=== PATIENT | female | born 1960 | race Caucasian/White ===

== ENCOUNTER 2020-04-03 09:15 | Day surgery (SDC) | payer OTHER ==
[~2020-04-03] VITALS: Ht 165.1 cm; Wt 83.6 kg
[~2020-04-03 09:15] MED LIST: SERTRALINE HCL25 MG PO; TRAMADOL-ACETA1 EACH PO
--- NOTE | 2020-04-03 10:18 | NUR ---
MINNA WITH NUCLEAR MED IN TO TAKE PT TO IMAGING.
--- NOTE | 2020-04-03 16:28 | NUR ---
04/03/20 1628 Rios,Laureen 1604 PT ARRIVED TO PACU WITH ORAL AIRWAY IN PLACE, RESP EVEN AND UNLABORED. PT NONAROUSBALE. VSS. 1619 PT WOKE TO TACTILE STIMULI AND ORAL AIRWAY REMOVED. PT REORIENTED TO PACU. PT RACHING FOR FACE AND ITCHING NOSE. PT REPORT SMALL AMOUNT OF PAIN AND NO NAUSEA. 1625 PT REPORTS 5/10 PAIN IN LEFT BREAST.
[2020-04-03] MEDS ORDERED: ACETAMINOPHEN500 MG PO (17:18)
[2020-04-03] MEDS ORDERED: IBUPROFEN600 MG PO (17:18)
[2020-04-03] MEDS ORDERED: OXYCODON-ACETA1 EAC2 PO (17:18)
--- NOTE | 2020-04-03 18:02 | NUR ---
PATIENT ARRIVED FROM PACU AFTER LEFT BREAST LUMPECTOMY, PATIENT IS HAVING CRACKERS AND WATER. VSS ARE STABLE, PATIENT RATES LEFT BREAST PAIN 5/10 AND DESCRIBES IT AN "ACHE." FAMILY IN ROOM IS PLANNING ON GOING TO [facility] FOR DISCHARGE PRESCRIPTIONS. PATIENT DENIES NEED TO VOID AT THIS TIME.
--- NOTE | 2020-04-03 18:29 | NUR ---
PATIENT GIVEN ONE PERCOCET FOR 5/10 PAIN. PATIENT IS EATING SOUP AND ROLL. PATIENT ROOM AIR SATS ARE 94% AT THIS TIME. PLAN TO WORK ON DISCHARGE PAPERS AND MONITOR SATS/PAIN CONTROL FOR NEXT 30 MINUTES.
--- NOTE | 2020-04-03 20:04 | NUR ---
1944 - UP TO BR, VOIDED, BACK TO BED, TOLERATED WELL, DRESSING L BREAST AREA INTACT. SL DC'D RAC, TIP INTACT. COOP WITH ASSESSMENT. BACK TO BED, NO EMESIS OR C/O PAIN. 1949 - DC INSTRUCTIONS GIVEN WRITTEN AND VERBAL, VERBAL RETURN BACK OF DC INSTRUCTIONS DONE WITH PT. ALL QUESTIONS ANSWERED. 1954 - DC HOME VIA W/C WITH ALL BELONGINGS AND DC INSTRUCTIONS, [facility]. PT AWARE TO CALL TUESDAY FOR APPT FOR 4 WEEKS FROM NOW. NO C/O PAIN
--- NOTE | 2020-04-07 08:12 | OR ---
[facility] [address] [place], [place] [address] Signed DATE OF OPERATION: 04/03/2020 SURGEON: Lizeth Ocampo MD PREOPERATIVE DIAGNOSIS: Left infiltrating ductal carcinoma, upper outer quadrant. POSTOPERATIVE DIAGNOSES: 1. Left infiltrating ductal carcinoma, upper outer quadrant. 2. [place] lymph node x2, negative on frozen pathology. PROCEDURE: 1. Injection of methylene blue dye for sentinel lymph node identification. 2. Left deep axillary sentinel lymph node biopsy x2. 3. Left partial mastectomy (upper outer quadrant with oncoplastic closure including skin excision pedicle rotation). ANESTHESIA: General endotracheal; Samuel Burnette CRNA. INDICATIONS: This 5-year-old white woman is a patient of Dr. Hodge at [place], [place] and referred with a biopsy-proven left infiltrating ductal breast carcinoma. Screening mammogram for a general complaint of "no energy" prompted the finding of abnormality in the left breast. She was noted to have a cluster of calcifications in the right side which were not biopsied. A palpable mass was noted by. She underwent core biopsy in [facility] of the left lesion, which showed an infiltrating ductal carcinoma, considered ER/DE positive and HER-2/emre negative. She has seen Dr. Caceres upon referral already who recommended surgical intervention withholding the recommendation for further evaluation to the pathology that was complete. She does have family history of breast cancer in a maternal aunt. The patient has a complex past medical history of subarachnoid hemorrhage requiring a drainage procedure in August of 2018. She has recovered from that largely. She is admitted at this time to undergo left partial mastectomy as well as sentinel lymph node biopsy having reviewed in detail with her the options of management including mastectomy. The risks of bleeding, infection, cosmetic deformity, need for additional treatment and other unforeseen complications were reviewed. She understands and wished to proceed. Electronically Signed By: LIZETH OCAMPO MD 04/07/20 0812 PATIENT NAME: DORON MARTINEZ OPERATIVE REPORT DATE OF : 58 REPORT #: [id number] PHYSICIAN: LIZETH OCAMPO MD PCP: CHITRA HODGE MD REPORT IS CONFIDENTIAL AND NOT TO BE RELEASED WITHOUT AUTHORIZATION [facility] [address] [place], [place] [address] Signed FINDINGS: Good uptake of radionuclide and methylene blue dye. Two sentinel lymph nodes in the left axilla was noted. Both sentinel nodes that were excised were negative on frozen pathology. The abnormality of the left breast was quite dense and hard and wide resection was undertaken with clinically negative margins. An equally dense and somewhat suspicious amount of tissue was noted separate and distinct from this in the subareolar area. This was excised and sent for frozen pathology (not a typical scenario), which on frozen pathology did not show malignancy, though final pathology is pending. Oncoplastic closure was required considering the extent of resection, which included extending the incision in the inferolateral aspect, resecting skin and so forth to provide a good breast contour. DESCRIPTION OF PROCEDURE: The patient was brought to the operating room, given a general endotracheal anesthetic. Preoperative antibiotic Ancef was given. Sequential compression device stockings used and heparin subcutaneously administered. The left breast had already undergone radionuclide injection for sentinel lymph node identification. Additionally, 1.5 mL of methylene blue dye was injected in the left upper outer aspect of the areolar margin showing good lymphatic uptake. After sterile draping, a C-Trak gamma probe was applied to the left axilla and the area of maximum intensity uptake signal was designated as site for incision. A small transverse incision was made. Dissection carried through the dermis with electrocautery. Using blunt dissection primarily evaluation of left axilla was undertaken. Small blue lymphatics were identified and followed to a sentinel lymph node which was avidly radioactive signal. This was excised. This was sent as sentinel lymph node #1. Additional evaluation showed an additional lymph node, it too was similarly excised and removed in the past as sentinel lymph node #2. Additional interrogation of the left axilla showed no sign of additional uptake of any no blue node or other abnormality. The wound was then packed with gauze. Attention was turned towards the primary tumor itself. This was easily palpable in the upper outer aspect of the left breast. An incision was made directly over it as a lateral incision or circumareolar incision would be poorly placed to allow for complete resection. Electronically Signed By: LIZETH OCAMPO MD 04/07/2012 PATIENT NAME: DORON MARTINEZ OPERATIVE REPORT DATE OF : 58 REPORT #: [id number] PHYSICIAN: LIZETH OCAMPO MD PCP: CHITRA HODGE MD REPORT IS CONFIDENTIAL AND NOT TO BE RELEASED WITHOUT AUTHORIZATION [facility] [address] [facility] [place] [address] Signed A curvilinear incision was made there for directly over the mass. Dissection carried through the subcutaneous tissue using electrocautery. Wide resection was undertaken developing essentially superior and inferior flaps. The tumor itself was at least 2 cm clinically and was easily discerned from the surrounding breast tissue. Electrocautery was used to excise it fully down to and including the pectoralis fascia. The specimen was oriented while in situ with a short stitch superior and long stitch lateral and once explanted a double stitch in the deep margin. Palpation of the lesion showed it to be deep within the parenchyma of the excised specimen and likely a good margin was obtained. Upon palpation of the cavity, one could feel some density in the subareolar area. This was further dissected free although not clearly cancer, suspicious to some degree for it. On that basis, wide resection of it was undertaken in the subareolar area. Mindful that if this was malignant, that a margin has not fully been provided. Frozen pathology of that tissue was obtained as well. By this point, the left axillary sentinel lymph nodes were identified as negative on frozen pathology for metastatic disease. Ultimately, the subareolar tissue was considered to have scarring and other changes but no sign of malignancy. We are mindful that frozen pathology is only a preliminary assessment, however. Irrigation was undertaken and electrocautery used to secure hemostasis fully. The defect in the left breast was sizable enough that the closure was to be more elaborate than simple parenchymal reapproximation. Breast pedicle was freed in the inferolateral aspect rotating it medially and that which was in the inferior and anterior aspects similarly mobilized. Parenchymal reapproximation was undertaken with interrupted 2-0 Vicryl suture. There was distortion of the skin such that an excision of the skin inferiorly and laterally was required both on the superior and inferior flaps. This provided a far more cosmetically acceptable closure. Additional 2-0 Vicryls were used to close the dermis and the skin was closed with running subcuticular 3-0 Vicryl. The axillary incision was closed with a similar technique. Steri-Strips were applied as was silver sponge dressing. The patient was ultimately extubated, transferred to the recovery room in good condition having suffered no complications. Sponge, needle, and instruments counts were reported as correct x3. BLOOD LOSS: Less than 25 mL Lizeth Ocampo MD Electronically Signed By: LIZETH OCAMPO MD 04/07/20811 PATIENT NAME: DORON MARTINEZ OPERATIVE REPORT DATE OF : 58 REPORT #: [id number] PHYSICIAN: LIZETH OCAMPO MD PCP: CHITRA HODGE MD REPORT IS CONFIDENTIAL AND NOT TO BE RELEASED WITHOUT AUTHORIZATION [facility] [address] [place] [address] Signed /JOSHUA /[id number] cc: MD Dr. Jose Rafael [address] [place], [place] Copies: RAVINDER CACERES MD ~ Electronically Signed By: LIZETH OCAMPO MD 04/07/20811 PATIENT NAME: DORON MARTINEZ OPERATIVE REPORT DATE OF : 58 REPORT #: [id number] PHYSICIAN: LIZETH OCAMPO MD PCP: CHITRA HODGE MD REPORT IS CONFIDENTIAL AND NOT TO BE RELEASED WITHOUT AUTHORIZATION
--- NOTE | 2020-05-14 17:16 | PATH ---
[facility] [address] [facility] [place], [place] [address] Signed THIS IS AN ADDENDUM REPORT SPECIMEN(S): A SENTINEL LYMPH NODE 1 SPECIMEN(S): B SENTINEL LYMPH NODE 2 SPECIMEN(S): C LEFT BREAST SPECIMEN(S): D SUBAREOLAR MASS SPECIMEN(S): E SKIN OF LEFT BREAST SPECIMEN SOURCE: A. SENTINEL LYMPH NODE 1 B. SENTINEL LYMPH NODE 2 C. LEFT BREAST D. SUBAREOLAR MASS E. SKIN OF LEFT BREAST CLINICAL HISTORY: Left breast ca - infiltrating ductal FROZEN SECTION DIAGNOSIS: A. [place] lymph node #1: - No evidence of malignancy in hobbies and crafts sales representative section frozen. Linda Alarcon M.D. 04/03/20, 3:13 p.m. Frozen section diagnoses called to Dr. De Luna at 3:30 p.m. B. [place] lymph node #2: - No evidence of malignancy in hobbies and crafts sales representative section frozen. Linda Alarcon M.D. 04/03/20, 3:17 p.m. Frozen section diagnoses called to Dr. De Luna at 3:30 p.m. D. "Subareolar mass" "cancer or not": - No grossly visible discrete mass/lesion. - No invasive ductal carcinoma identified on hobbies and crafts sales representative section frozen; defer to permanent for final evaluation. Linda Alarcon M.D. 04/03/20, 3:40 p.m. Frozen section diagnoses called to Dr. De Luna at 3:57 p.m. AI(under the direct supervision of a pathologist) The Gross Description was prepared using a voice recognition system. The report was reviewed for accuracy; however, sound-alike word errors, addition and/or deletions may occur. If there is any question about this report, please contact Client Services. FINAL PATHOLOGIC DIAGNOSIS: PATIENT NAME: EDEL MARTINEZ PATHOLOGY DATE OF : 58 REPORT #: [id number] PHYSICIAN: RENEE PATHOLOGY PCP: CHITRA HODGE MD REPORT IS CONFIDENTIAL AND NOT TO BE RELEASED WITHOUT AUTHORIZATION [facility] [address] [place], [place] [address] Signed A. [place] lymph node #1, left axilla, excisional biopsy: - No evidence of malignancy in one lymph node (0/1). B. [place] lymph node #2, left axilla, excisional biopsy: - Isolated tumor cells present in one lymph node. C. Breast, left, lumpectomy: - Invasive ductal carcinoma and invasive lobular carcinoma with the following features: - Tumor site: Upper outer quadrant. - Tumor size: - Ductal: 27 mm in greatest dimension (per imaging). - Lobular: 4 mm in greatest dimension (measured microscopically). - Histologic type: Invasive ductal carcinoma and invasive lobular carcinoma. - Histologic grade (Winfield histologic score): - Glandular (acinar)/tubular differentiation: Score 3. - Nuclear pleomorphism: Score 2. - Mitotic rate: Score 1. - Overall grade: II/III (total score 6 of 9). - Tumor focality: Two foci - Ductal carcinoma in situ (DCIS): Present, negative for extensive intraductal component (EIC). - Architectural patterns: Solid, cribriform, and micropapillary. - Nuclear grade: Grade 2 (intermediate). - Necrosis: Present, central comedo necrosis. - Lobular carcinoma in situ (LCIS): Present. - Margins: - Invasive ductal carcinoma margins: Negative. - Posterior: 3mm - Lateral: 6 mm - Anterior: 8 mm - Medial, Superior, Inferior: Greater than 10 mm. - Invasive lobular carcinoma margins: Suspicious for focal superior margin involvement. - Superior: Approximately 1 mm, see Comment. - Inferior, Medial, Lateral, Anterior, Posterior: Greater than 10 mm. PATIENT NAME: EDEL MARTINEZ PATHOLOGY DATE OF : 58 REPORT #: [id number] PHYSICIAN: RENEE PATHOLOGY PCP: CHITRA HODGE MD REPORT IS CONFIDENTIAL AND NOT TO BE RELEASED WITHOUT AUTHORIZATION [facility] [address] [place], [place] [address] Signed - DCIS margins: Negative. - Superior and Medial: 2.5 mm. - Anterior: 4 mm. - Inferior: 5 mm. - Lateral and Posterior: 6 mm. - Regional lymph nodes: Involved by tumor cells. - Number of lymph nodes with macrometastases: 1 (intramammary via direct extension). - Number of lymph nodes with micrometastases: 0. - Number of lymph nodes with isolated tumor cells: 1. - Size of largest metastatic deposit: 2.5 mm. - Extra geeta extension: Not identified. - Number of lymph nodes examined: 3. - Number of sentinel lymph nodes examined: 2. - Treatment effect in the breast: No known pre-surgical therapy. - Lymphovascular invasion: Not identified. - Additional pathologic findings: Background breast tissue with fibrocystic changes including usual ductal hyperplasia, cyst formation, stromal fibrosis, apocrine metaplasia, and adenosis. - Microcalcifications: Present in DCIS and non-neoplastic tissue. - Breast biomarker studies (Invasive ductal carcinoma): Refer to previously performed studies ([id number]) which were interpreted as Estrogen receptor positive, progesterone receptor positive, HER2 negative by IHC, and Ki-67 proliferation index of 20%. - Pathologic stage classification (pTNM, AJCC 8th ed.): mpT2 (sn)pN1. - See Comment. D. 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 - Nuclear grade: Grade 2 (intermediate). - Necrosis: Present, central comedo necrosis. - Margins: DCIS focally extends to cauterized, inked margin. - Calcifications: Associated with DCIS and non-neoplastic tissue. - Pathologic stage classification (pTNM, AJCC 8th ed.): pTis. - Background fibrocystic changes including stromal fibrosis, usual ductal hyperplasia, apocrine metaplasia, and cyst formation. E. Skin , left breast redundant skin, excision: PATIENT NAME: EDEL MARTINEZ PATHOLOGY DATE OF : 58 REPORT #: [id number] PHYSICIAN: RENEE JARVIS PCP: CHITRA HODGE MD REPORT IS CONFIDENTIAL AND NOT TO BE RELEASED WITHOUT AUTHORIZATION [address] [address] Signed - Skin and subcutaneous tissue with no histopathologic abnormality. COMMENT: Regarding specimen C: The focus of invasive lobular carcinoma is at the inferior aspect of the specimen, approaching the inked, cauterized margin. Though definitive invasive lobular carcinoma is not seen on the inked margin, cauterized crushed cells extend towards the inked margin, interpreted as suspicious for focal margin involvement of the carcinoma. Biomarker studies will be performed on the invasive lobular carcinoma and reported in an addendum. One intramammary lymph node is present adjacent to the invasive ductal carcinoma and is involved by the carcinoma via direct tumor extension; for staging purposes, this is included with axillary nodes. The size of the invasive ductal carcinoma is obtained from the patient's screening mammogram on 01/31/2020. Regarding specimen D: In addition to the DCIS focally extending to the cauterized margin, DCIS is present elsewhere less than 1 mm from the margin. NAL:cml:C1NR MICROSCOPIC EXAMINATION: Histologic sections of all submitted blocks are examined by light microscopy. Immunohistochemical stains (with appropriately staining controls) were performed. Pancytokeratin (AE1/AE3) on each sentinel lymph node (A1, A2, B1, B2, B3) highlights tumor cells only in sentinel lymph node #2. ER and CK5/6 confirm areas of DCIS in the lumpectomy (C6) and subareolar mass (D4). E-cadherin confirms LCIS (C4) and invasive lobular carcinoma (C14) with loss of membranous staining. Pancytokeratin (AE1/AE3) highlights the extent of invasive lobular carcinoma (C14). These findings, together with the gross examination, support the pathologic diagnosis. GROSS DESCRIPTION: Five specimens are received in five containers, labeled "ST." A. The specimen, labeled "ST, A," and designated on the requisition "SLN #1," is received fresh for frozen section diagnosis and consists of a 1.0 x 1.0 x 0.5 cm lymph node. The lymph node is bisected and half of the lymph node is submitted for frozen section in AFR1. The remainder of the specimen for frozen section is submitted for permanent as follows: (A1) - remainder of frozen section, (A2) - remainder of specimen. B. The specimen, labeled "ST, B," and designated on the requisition "SLN PATIENT NAME: EDEL MARTINEZ PATHOLOGY DATE OF : 58 REPORT #: [id number] PHYSICIAN: RENEE JARVIS PCP: CHITRA HODGE MD REPORT IS CONFIDENTIAL AND NOT TO BE RELEASED WITHOUT AUTHORIZATION [facility] [address] [place], [place] [address] Signed #2," is received for frozen section diagnosis and consists of a 1.5 x 1.5 x 0.6 cm lymph node. The lymph node is trisected and one third of the lymph node is submitted for frozen in BFR1 (note: One third of the specimen was frozen, but not cut due to fragmentation (put in gauze in container). The remainder specimen is submitted entirely as follows: (B1) - remainder of frozen section (B2) - portion specimen wrapped in gauze (2 pieces arrived wrapped in gauze) (B3) - remainder of specimen C. C. The specimen, labeled "ST," and designated on the requisition "left breast mass," is received in formalin and consists of a portion of fibroadipose tissue (148 g, 8.3 cm superior to inferior, 7.4 cm medial to lateral, and 4.5 cm anterior to posterior) that is inked as follows: Blue = superior Green = inferior Red = medial Griffin = lateral Yellow = anterior Black = posterior/deep The specimen is serially sectioned from inferior to superior into 19 slices to reveal a white-purcell ill-defined firm mass (5.7 x 5.0 x 3.1 cm) in slices 9-19 that grossly abuts the medial and superior margins and is located 0.1 cm from the posterior margin, 0.7 cm from the lateral margin, 0.8 cm from the anterior margin, and 2.6 cm from the inferior margin. A coil clip is located in slice 7 within the mass. There is fibrous area/possible extension of mass in slices 6-8 (1.7 x 1.2 x 0.5 cm) directly adjacent to the mass, abutting the medial and anterior margins, and located 0.5 cm from the posterior margin, 2.7 cm from the lateral margin, 4.9 cm from the lateral margin, 2.0 cm from the inferior margin. The remainder of the specimen shows yellow-purcell fatty tissue. Gross photographs are taken and uploaded into [employer] sections are submitted as follows: (C1) slice one, inferior margin (C2 slice 5 (C3) slice 6 fibrous area (C4) slice 7 fibrous area (C5) slice 8 fibrous area (C6) slice 9, mass to medial margin PATIENT NAME: EDEL MARTINEZ PATHOLOGY DATE OF : 58 REPORT #: [id number] PHYSICIAN: RENEE JARVIS PCP: CHITRA HODGE MD REPORT IS CONFIDENTIAL AND NOT TO BE RELEASED WITHOUT AUTHORIZATION [address] [address] Signed (C7) slice 10 mass to posterior margin (C8) slice 12, mass to close lateral and anterior margins (C9) slice 13, mass to close lateral and anterior margins (C 10) slice 14, mass to closest posterior margin (C 11) slice 15, mass to close lateral margin (C 12) slice 16, mass to posterior and medial (C 13 slices 17, mass to superior (C 14) slice 19, mass to superior margin AC (under the direct supervision of a pathologist) Additional tissue is submitted is submitted in cassettes C15-C17 per Dr. Alarcon's request. FB Cold Ischemic Time: 4 minutes The specimen was fixed in formalin for over 72 hours D. The specimen, labeled "ST, D," and designated on the requisition "subareolar mass," is received fresh for frozen section diagnosis and consists of a 4.2 x 2.6 x 1.0 cm, unoriented fibrofatty tissue piece. The external surface of the specimen is inked green and the specimen is serially sectioned to reveal fibrofatty tissue with no grossly viable lesion. Re[employer] sections are submitted for frozen section and in CFR1. The remainder of the specimen is submitted entirely as follows: (D1) - remainder of frozen section (D2-D5) - remainder of specimen submitted sequentially (D2-D3 is a bisected cross-section of the specimen) E. The specimen, labeled "ST, E," and designated on the requisition "redundant skin of left breast," is received in formalin and consists of three unoriented, purcell, grossly unremarkable, somewhat ellipsoid segments of skin. The first is 4.4 x 1.7 x 1.0 cm and the resection margin is inked red. The second is 5.0 x 2.0 x 0.7 cm and the resection margin is inked black. The third is 5.9 x 1.8 x 0.9 cm and the resection margin is inked blue. The 3 pieces are cross-sectioned to reveal yellow, homogenous, grossly unremarkable tissue. Re[employer] sections of each piece are submitted in one cassette (E1). PERFORMING LABORATORY: The frozen section was performed by [facility], [address] [address] (CLIA# [id number]). The technical component was performed by [facility], [address] [place] [address] (Forging Machine Operator: Yanira Arredondo MD; CLIA# [id number]). PATIENT NAME: EDEL MARTINEZ PATHOLOGY DATE OF : 58 REPORT #: [id number] PHYSICIAN: [employer] PATHOLOGY PCP: CHITRA HODGE MD REPORT IS CONFIDENTIAL AND NOT TO BE RELEASED WITHOUT AUTHORIZATION [facility] [address] [place], [place] [address] Signed REASON FOR ADDENDUM: To add results of additional testing. ADDENDUM PATHOLOGIC DIAGNOSIS: C. HER-2 protein by IHC, left breast: - Negative; IHC score 0. MZ:[facility] ADDENDUM MICROSCOPIC EXAMINATION: Block: C14. The fixation is 10% buffered formalin. The length of fixation is over 72 hours, outside of ASCO/CAP guidelines. HER-2 protein expression by immunohistochemistry using the FDA-approved HER-2 Pathway [place] [place], at the request of Dr. Linda Alarcon. Standardized batch control materials react appropriately. The presence of tumor is confirmed. Scoring is according to ASCO/CAP 2018 guidelines. Membrane staining that is incomplete and is faint/barely perceptible and within less than 10% of tumor cells; score 0. The technical and professional components were performed by [facility], [address] [place] [address] (Forging Machine Operator: Gil Sen D.O.; CLIA#: [id number]). ADDITIONAL NOTES: Immunohistochemical studies were performed on this case with the appropriate positive controls that react as expected. This test was developed and its performance characteristics determined by [facility]. It has not been cleared or approved by the U.S. Food and Drug Administration. The FDA has determined that such clearance or approval is not necessary. This test is used for clinical purposes. It should not be regarded as investigational or for research. [facility] is certified under the Clinical Laboratory Improvement Amendments of 1988 (CLIA) as qualified to perform high complexity clinical laboratory testing. This assay has not been validated for specimens that have been decalcified. PERFORMING LABORATORY: The technical component was performed by [facility], [address] [place] [address] (Forging Machine Operator: Gil Sen D.O.; CLIA#: [id number]). Professional interpretation was performed by [facility], [address] [address] (Forging Machine Operator: PATIENT NAME: EDEL MARTINEZ PATHOLOGY DATE OF : 58 REPORT #: [id number] PHYSICIAN: RENEE JARVIS PCP: CHITRA HODGE MD REPORT IS CONFIDENTIAL AND NOT TO BE RELEASED WITHOUT AUTHORIZATION [address] [address] Signed Ollie Hernandez M.D.; CLIA#: [id number]). REASON FOR ADDENDUM: To add results of additional testing. ADDENDUM PATHOLOGIC DIAGNOSIS: C. Left breast invasive ductal and lobular carcinoma: - Estrogen receptor: Positive. - Greater than 95% of tumor cells with strong average intensity. - Progesterone receptor: Positive. - 90% of tumor cells with strong average intensity. - Ki-67 proliferation index: 3.5%. BRP:[facility] ADDENDUM MICROSCOPIC EXAMINATION: Block: C14 The cold ischemia time is 4 minutes. The fixative is 10% neutral buffered formalin. The length of fixation is over 72 hours, outside of ASCO/CAP guidelines. Estrogen receptor clone SP1 and progesterone receptor clone 1E2 by [employer] [place], [place]. Detection: HRP Polymer Detection on the [employer] with appropriate controls. Nuclear immunoreactivity of 1% or greater is considered positive by ASCO/CAP guidelines. Internal control cells for ER are positive. Internal control cells for KS are positive. A Ki-67 proliferation index is performed, and 500 cells are counted. [facility]. BRP:[facility] REASON FOR ADDENDUM: To document review of material for external testing. ADDENDUM COMMENT: At the request of Dr. Mir Thomason, archived slides and blocks for case [id number] are retrieved on Edel Martinez and reviewed by a pathologist to assess adequacy for Oncotype DX Breast testing. Block C15 is sent to [facility]. DDF:jennifer Professional interpretation was performed by [facility], [facility], [address] [place] [address] (Forging Machine Operator: Chandan Lipscomb DO; CLIA#: [id number]. PATIENT NAME: EDEL MARTINEZ PATHOLOGY DATE OF : 58 REPORT #: [id number] PHYSICIAN: RENEE PATHOLOGY PCP: CHITRA HODGE MD REPORT IS CONFIDENTIAL AND NOT TO BE RELEASED WITHOUT AUTHORIZATION [facility] [address] [facility] [place], [place] [address] Signed REASON FOR ADDENDUM: To add results of additional testing. ADDENDUM PATHOLOGIC DIAGNOSIS: - Oncotype DX Recurrence Score Result: 14 - Distant Recurrence Risk at 9 years: 14% - Absolute Chemotherapy Benefit: No apparent benefit - Quantitative ER score: Positive (11.1) - Quantitative KS score: Positive (8.1) - Quantitative HER-2 score: Negative (9.2) ADDENDUM COMMENT: The ER, KS and HER-2 scores correlate with previously performed results on [id number]. The technical and professional components of the Oncotype DX testing were performed at [facility], [place], [place] (case # [id number]). Detailed report is kept on file. Diagnostician: Meet Mora MD, PhD Pathologist Diagnostician: Casper Weaver MD Pathologist Diagnostician: Emanuel Mora DO Pathologist Diagnostician: Linda Alarcon MD Pathologist Electronically Signed 05/14/2020 Copies: ~ PATIENT NAME: EDEL MARTINEZ PATHOLOGY DATE OF : 58 REPORT #: [id number] PHYSICIAN: RENEE PATHOLOGY PCP: CHITRA HODGE MD REPORT IS CONFIDENTIAL AND NOT TO BE RELEASED WITHOUT AUTHORIZATION
== END 2020-04-03 19:55 | disposition home or self-care (01) ==
LOC: NUC 09:15 → DS 09:15 → OPS 09:15 → NUC 10:30 → EDSTATUS 10:30 → MS 17:30 → DS 17:30 → OPS 19:55 → MS 19:55 → NUC 19:55
PROVIDERS: ATTEND Surgery
PROC: 0HBU0ZZ Excision of Left Breast, Open Approach (ICD-10-PCS; principal; 2020-04-03 11:30)
PROC: 07B60ZX Excision of Left Axillary Lymphatic, Open Approach, Diagnostic (ICD-10-PCS; 2020-04-03 11:30)
DX: C50.412 Malignant neoplasm of upper-outer quadrant of left female breast (principal); J43.9 Emphysema, unspecified; Z79.899 Other long term (current) drug therapy; Z87.891 Personal history of nicotine dependence
CPT/HCPCS: 00404; 36415; 38792; 85025; A9541; J0690; J1100; J1170; J1644; J1885; J2001; J2250; J2405; J2704; J3010; J7120; Q9968

== ENCOUNTER 2020-07-18 06:25 | Day surgery (SDC) | payer OTHER ==
[~2020-07-18] VITALS: Ht 165.1 cm; Wt 84.5 kg
[~2020-07-18 06:25] MED LIST changes: +ACETAMINOPHEN500 MG PO; +IBUPROFEN600 MG PO; +OXYCODON-ACETA1 EAC2 PO
--- NOTE | 2020-07-18 08:47 | NUR ---
07/18/20 0847 Nuris Bang 0844- PT ARRIVES TO PACU NONAROUSABLE TO NOXIOUS STIMULI WITH AN OPA IN PLACE. RESP EVEN AND UNLABORED. OXYGEN SAT HIGH 90'S TO 100% ON 6L VIA MASK.
--- NOTE | 2020-07-18 09:40 | NUR ---
LE 0930: PT ARRIVES TO UNIT FROM PACU VIA STRETCHER. REPORT RECEIVED AND CARE ASSUMED BY THIS AUTHOR. VSS. DRESSING C/D/I. SCDS IN PLACE BILAT. PT CARLINE PO FLUIDS. REPORTS 3/10 PAIN. ENCD TO EAT CRACKERS AND RN WILL ADMINISTER PAIN RX ORDERED. SON ATTENTIVE AT THE BEDSIDE. NO NEEDS AT THIS TIME. CALL LIGHT WITHIN REACH
--- NOTE | 2020-07-18 09:50 | NUR ---
PT CARLINE APPLESAUCE WELL. PAIN RX ADMINISTERED ORDERED. NO FURTHER NEEDS VOICED AT THIS TIME. CALL LIGHT WITHIN REACH
[2020-07-18] MEDS ORDERED: OXYCODON-ACETA1 EAC2 PO (10:04)
[2020-07-18] MEDS ORDERED: IBUPROFEN600 MG PO (10:04)
[2020-07-18] MEDS ORDERED: ACETAMINOPHEN500 MG PO (10:04)
--- NOTE | 2020-07-18 10:48 | NUR ---
LE 1025: PT WITH CALL FOR RN WONDERING WHEN SHE MAY BE D/C'D. PT DANGLES AT BEDSIDE. DENIES DIZZINESS AND SOB. AMBULATES TO BR FOR FIRST SUCCESSFUL POST OP VOID. BACK TO ROOM. STEADY GAIT. IV D/C'D WITH CATH TIP INTACT AND PRESSURE APPLIED TO SITE. PT PREPARES FOR D/C. VSS, CONTS TO DENY NAUSEA. DRESSING C/D/I, CMS WNL. LE 1040: D/C INSTRUCTIONS PROVIDED AND DISCUSSED ORDERED. PT VOICES UNDERSTANDING AND DENIES QUESTIONS AT THIS TIME. ENCD TO CALL OFFICE OR RETURN WITH ANY CONCERNS. WHEELED OFF OF UNIT IN W/C BY THIS RN. TRANSFERS INTO VEHICLE INDEPENDENTLY. RESP EVEN AND UNLABORED. NO PHYSICAL S/S OF DISTRESS AT THIS TIME
--- NOTE | 2020-07-20 13:00 | OR ---
[facility] [address] [place], [place] [address] Signed DATE OF OPERATION: 07/18/2020 SURGEON: Lizeth Ocampo MD PREOPERATIVE DIAGNOSES: 1. Left subareolar ductal carcinoma in situ. 2. History of left upper outer quadrant infiltrating ductal carcinoma, status post partial mastectomy with oncoplastic closure and sentinel lymph node biopsy (negative). POSTOPERATIVE DIAGNOSES: 1. Left subareolar ductal carcinoma in situ. 2. History of left upper outer quadrant infiltrating ductal carcinoma, status post partial mastectomy with oncoplastic closure and sentinel lymph node biopsy (negative). PROCEDURE: Left partial mastectomy, central breast including nipple-areolar complex. ANESTHESIA: General LMA, Samuel Burnette CRNA. INDICATIONS: This 60-year-old white woman is a patient of Dr. Hodge in [place], [place]. She has undergone treatment in the left breast in the upper outer aspect with wide resection, sentinel lymph node biopsy and oncoplastic closure in March of 2020. Notably at time of operation, some tissue in the subareolar area was suspicious for malignancy and not visualized on any imaging study and biopsy was obtained. Frozen pathology did not confirm malignancy. Final pathology however did confirm extensive ductal carcinoma in situ in the subareolar area. She has had an abnormality of the right breast, which was ultimately evaluated by MRI showing it to be unlikely suspicious. The MRI visualization of the left breast did not show clear evidence of malignancy, but mindful of the biopsy that was done at time of original operation on the left side. A negative margin is desired. She is anticipating radiation therapy by Dr. Davis. Options of management have been reviewed including the possibility of total mastectomy, particularly should re-resection not allow for negative margin. She understands the risks of bleeding, infection, cosmetic deformity, and so forth related to operation and wished to proceed. FINDINGS: Central breast excision was undertaken including the nipple areolar complex. Resection Electronically Signed By: LIZETH OCAMPO MD 07/20/20 1300 PATIENT NAME: DORON MARTINEZ OPERATIVE REPORT DATE OF : 58 REPORT #: [id number] PHYSICIAN: LIZETH OCAMPO MD PCP: CHITRA HODGE MD REPORT IS CONFIDENTIAL AND NOT TO BE RELEASED WITHOUT AUTHORIZATION [facility] [address] [place], [place] [address] Signed did cross through fibrotic tissue from prior resection in the superior aspect. It is believed that a clinically negative and pathologically negative margin have been achieved. DESCRIPTION OF PROCEDURE: The patient was brought to the operating room, given a general LMA type anesthetic. Preoperative antibiotic Ancef was given. Sequential compression device stockings were used and heparin subcutaneously administered. The left breast was prepared with a chlorhexidine solution and draped sterilely. Photographs were taken. Elliptical incision was made around the nipple-areolar complex. Using electrocautery, wide resection was undertaken to include the nipple-areolar complex and the breast tissue as anticipated. The specimen was oriented with short stitch superior and long stitch lateral. Irrigation was undertaken. The wound was closed in layers of interrupted 2-0 Vicryl and a running subcuticular 3-0 Vicryl for the skin. breast deformity due to central excision of the breast, a reasonable amount of breast tissue to provide cosmetic contour has been afforded. Steri-Strips were applied as was a silver sponge dressing. She was ultimately extubated and transferred to the recovery room in good condition having suffered no complications. Sponge, needle, and instrument counts were reported as correct x3. Lizeth Ocampo MD /MODL /[id number] cc: Jd Davis MD, PH.D. Dr. Jose Rafael Caceres MD Copies: JD DAVIS Electronically Signed By: LIZETH OCAMPO MD 07/20/20 1300 PATIENT NAME: DORON MARTINEZ OPERATIVE REPORT DATE OF : 58 REPORT #: [id number] PHYSICIAN: LIZETH OCAMPO MD PCP: CHITRA HODGE MD REPORT IS CONFIDENTIAL AND NOT TO BE RELEASED WITHOUT AUTHORIZATION [facility] [address] [facility] [place] [address] Signed RAVINDER CACERES MD Electronically Signed By: LIZETH OCAMPO MD 07/20/20 1300 PATIENT NAME: DORON MARTINEZ OPERATIVE REPORT DATE OF : 58 REPORT #: [id number] PHYSICIAN: LIZETH OCAMPO MD PCP: CHITRA HODGE MD REPORT IS CONFIDENTIAL AND NOT TO BE RELEASED WITHOUT AUTHORIZATION
--- NOTE | 2020-07-22 14:56 | PATH ---
[facility] [address], [place] [address] Signed SPECIMEN(S): A LEFT CENTRAL BREAST EXCISION SPECIMEN SOURCE: A. LEFT CENTRAL BREAST EXCISION CLINICAL HISTORY: Intraductal carcinoma of left breast. Left central breast partial mastectomy (short stitch superior, long stitch lateral). 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 - Margins: - DCIS: Uninvolved by DCIS, approximately 2 mm to the nearest blue-inked (superior) surgical margin. - Additional pathologic findings: Atypical duct hyperplasia, free of the surgical margins. - Extensive biopsy site changes. - Additional clinical history: Prior lumpectomies and sentinel node biopsies. - ER, NE, HER2 by IHC and Ki-67 proliferation index: Please refer to studies previously performed on case [id number] which were reported in the invasive component as: ER+, NE+, KI-67 proliferation index: 20%, HER2 by IHC: Negative. - Surgical pathology stage: Please refer to previous case ([id number], mpT2(sn) pN1. COMMENT: As part of [facility] Quality Improvement Program, this case was reviewed by another member of our pathology staff. JVR:RAHEEL:diamond:C2NR MICROSCOPIC EXAMINATION: Histologic sections of all submitted blocks are examined by light microscopy. These findings, together with the gross examination, support the pathologic diagnosis. Immunostains performed on block A11 with appropriate controls show the following: - P63: Positive in the area of concern (nuclear). PATIENT NAME: DORON MARTINEZ PATHOLOGY DATE OF : 58 REPORT #: [id number] PHYSICIAN: RENEE PATHOLOGY PCP: CHITRA HODGE MD REPORT IS CONFIDENTIAL AND NOT TO BE RELEASED WITHOUT AUTHORIZATION [facility] [address], [place] [address] Signed - [facility]: Positive in the area of concern. GROSS DESCRIPTION: The specimen, labeled "ST," and designated on the requisition "left central breast excision, short stitch superior, long stitch lateral," is received in formalin and consists of an oriented portion of yellow to pink-purcell fibroadipose tissue (66 gram, 7.4 cm medial to lateral, 5.7 cm anterior to posterior, 3.4 cm superior to inferior) with a short stitch marking the superior aspect, a long stitch marking the lateral aspect, and attached portion of pink-purcell skin (7.6 cm in length x 3.5 cm in width) with pink-purcell areola (2.8 x 2.5 cm) and everted nipple (1.3 x 1.3 x 0.7 cm). The specimen is inked as follows: Blue = superior Green = inferior Black = posterior [place] = lateral Red = medial The specimen is serially sectioned from medial to lateral into 15 slices to reveal a white to orange-purcell, firm to fibrous and ill-defined lesion (1.7 x 1.2 x 1.1 cm) in slices 12-15 that is 0.1 cm from the lateral margin, 0.5 cm from the superior margin, 1.3 cm from the posterior margin, 1.3 cm from the skin, 1.3 cm from the inferior margin, approximately 3.5 cm from the nipple, and 6.3 cm from the medial margin. The remaining cut surface shows yellow-uprcell, fatty to white-purcell, fibrous tissue (30-40% fibrous). The lesion is submitted entirely. A specimen map is prepared, gross photographs are taken and uploaded into [employer]. Drying Machine Receiver sections are submitted as follows: Cassette Summary: (A1) Nipple, shaved, serially sectioned (A2) Subjacent nipple section, shaved, en face (A3) Slice 1, medial margin, perpendicular sections (A4) Slice 6 (A5) Slice 9, fibrous area (A6-A7) Slice 10, fibrous area (A8-A10) Slice 11, fibrous areas (A11) Slice 12, medial most aspect of lesion (A12-A14) Slice 12, fibrous areas (A15) Slice 13, closest skin (bisected) PATIENT NAME: DORON MARTINEZ PATHOLOGY DATE OF : 58 REPORT #: [id number] PHYSICIAN: RENEE PATHOLOGY PCP: CHITRA HODGE MD REPORT IS CONFIDENTIAL AND NOT TO BE RELEASED WITHOUT AUTHORIZATION [facility] [address] [place] [id number] Signed (A16) Slice 13, lesion to superior (A17) Slice 13, lesion to closest inferior (A18-A19) Slice 13, closest posterior with fibrous tissue (A20-A21) Slice 14, lesion to closest superior (bisected) (A22-A23) Slice 14, fibrous tissue (A24-A26) Slice 15, lesion to lateral, perpendicular sections Cold ischemic time: Cannot be calculated due to insufficient information. The specimen was fixed in formalin for approximately 51 hours and 30 minutes. AC (under the direct supervision of a pathologist) The Gross Description was prepared using a voice recognition system. The report was reviewed for accuracy; however, sound-alike word errors, addition and/or deletions may occur. If there is any question about this report, please contact Client Services. PERFORMING LABORATORY: The technical component was performed by [facility], [address] [place] [address] (Batch Records Clerk: Yanira Arredondo MD; CLIA# [id number]). Professional interpretation was performed by [facility], [place] [address]. Diagnostician: Endy Santiago MD Pathologist Electronically Signed 07/22/2020 Copies: ~ PATIENT NAME: DORON MARTINEZ PATHOLOGY DATE OF : 58 REPORT #: [id number] PHYSICIAN: RENEE PATHOLOGY PCP: CHITRA HODGE MD REPORT IS CONFIDENTIAL AND NOT TO BE RELEASED WITHOUT AUTHORIZATION
== END 2020-07-18 10:40 | disposition home or self-care (01) ==
LOC: DS 06:25
PROVIDERS: ATTEND Surgery
PROC: 0HBU0ZZ Excision of Left Breast, Open Approach (ICD-10-PCS; principal; 2020-07-18 06:45)
DX: D05.12 Intraductal carcinoma in situ of left breast (principal); C50.412 Malignant neoplasm of upper-outer quadrant of left female breast; N60.92 Unspecified benign mammary dysplasia of left breast; J68.3 Other acute and subacute respiratory conditions due to chemicals, gases, fumes and vapors; J43.9 Emphysema, unspecified; Z87.891 Personal history of nicotine dependence; Z86.79 Personal history of other diseases of the circulatory system; Z86.73 Personal history of transient ischemic attack (TIA), and cerebral infarction without residual deficits
CPT/HCPCS: 00404; A9270; J0690; J1100; J1644; J1885; J2001; J2250; J2405; J2704; J3010; J7121